=== PATIENT | female | born 1990 | race Caucasian/White ===

== ENCOUNTER 2021-10-07 15:47 | Emergency (ER) | payer BC ==
--- NOTE | 2021-10-07 16:38 | RAD REPORT ---
EXAM DESCRIPTION: CT - Head Brain Wo Cont - 10/07/2021 4:32 pm CLINICAL HISTORY: DIZZINESS Headache, dizziness COMPARISON: No comparisons TECHNIQUE: All CT scans are performed using dose optimization technique as appropriate and may inclu de automated exposure control or mA/KV adjustment according to patient size. FINDINGS: No intracranial hemorrhage, hydrocephalus or extra-axial fluid collection.No areas of brai n edema or evidence of midline shift. 2 cm mucous retention cyst versus polyp left maxillary antrum. The calvarium is intact. IMPRESSION: No acute intracranial abnormality.
--- NOTE | 2021-10-07 17:15 | RAD REPORT ---
EXAM DESCRIPTION: RAD - Chest Single View - 10/07/2021 5:08 pm CLINICAL HISTORY: chest pressure Chest pain. COMPARISON: No comparisons FINDINGS: Portable technique limits examination quality. The lungs are grossly clear. The heart is normal in size. No displaced fractures. IMPRESSION: No acute intrathoracic process suspected.
[2021-10-07 17:24] LABS: Urine Blood 1+ (Negative); Urine Glucose Negative (Negative); Urine Protein Negative (Negative); Urine Specific Gravity >=1.030 (1.005-1.030); Urine pH 5.5 (5.0-7.0)
[2021-10-07 17:29] LABS: Absolute Lymphocytes (CBC) 2.5 K/uL (0.7-4.9); Hematocrit 40.9 % (36.0-45.0); Lymphocytes % 27.1 % (15.3-44.8); MPV 8.7 fL (7.6-11.3); RBC Red Blood Cell Count 4.56 M/uL (3.86-4.86)
[2021-10-07 17:45] LABS: Protime INR 0.96
[2021-10-07 17:46] LABS: ALT/SGPT 32 U/L (12-78); AST/SGOT 10 U/L (15-37); Albumin 4.2 g/dL (3.4-5.0); Alkaline Phosphatase 77 U/L (45-117); BUN Blood Urea Nitrogen 9 mg/dL (7-18); Bicarbonate 26 mmol/L (21-32); Bilirubin Direct 0.1 mg/dL (0-0.2); Bilirubin Total 0.6 mg/dL (0.2-1.0); Glucose Level 82 mg/dL (74-106); Protein, Total 7.5 g/dL (6.4-8.2); Sodium Level 138 mmol/L (136-145)
[2021-10-07 17:49] LABS: Urine Specific Gravity/Preg >1.030 (1.005-1.030)
[2021-10-07] MEDS ORDERED: METOCLOPRAMIDE 10 MG/2mL INJ ONE (17:59)
[2021-10-07] MEDS ORDERED: MECLIZINE HCL 12.5 MG TAB ONE (18:00)
[2021-10-07] MEDS ORDERED: ONDANSETRON 4 MG/2 ML VIAL ONE (18:00)
[2021-10-07] MEDS ORDERED: NA CHLORIDE 0.9% 1,000 ML ONE (18:00)
[2021-10-07 18:02] LABS: Troponin High Sensitivity < 3.0 pg/mL (<58.9)
--- NOTE | 2021-10-07 18:15 | RAD REPORT ---
EXAM DESCRIPTION: MRI - Brain Wo Cont - 10/07/2021 6:00 pm CLINICAL HISTORY: Dizziness;Headache Headache, drowsiness COMPARISON: Head Brain Wo Cont dated 10/07/2021 TECHNIQUE: Multi-sequence, multiplanar MR imaging of the brain was performed without contrast. FINDINGS: No intracranial hemorrhage, hydrocephalus or extra-axial fluid collections. No edema or sh ift of midline structures. No findings to suspect brain mass. DWI is negative for acute CVA. Midline structures are normally formed. Mild mastoid effusions. 15 mm mucous retention cyst versus polyp posterior left maxillary antrum. IMPRESSION: Negative for acute CVA or other acute intracranial process.
[2021-10-07] MEDS ORDERED: dexAMETHasone 10 MG/ML VIAL ONE (18:45)
[2021-10-07] MEDS ORDERED: DIPHENHYDRAMINE 50 MG/ML VIAL ONE (18:45)
--- NOTE | 2021-10-07 19:41 | ER ---
Nurse's Notes [facility] Name: Eli Duarte Age: 31 yrs Sex: Female : 1990 Arrival Date: 10/07/2021 Time: 15:50 Bed 27 Private MD: Diagnosis: Headache;Dizziness and giddiness Presentation: 10/07 15:54 Chief complaint: Patient states: "i started having these symptoms at 1325. my blood jd3 pressures have been really high with systolics in the 140's and 150's and going up. I feel like i am going to pass out and feeling dizzy. when it gets this high i generally get a migraine, and I feel it coming on.". Coronavirus screen: At this time, the client does not indicate any symptoms associated with coronavirus-19. Ebola Screen: No symptoms or risks identified at this time. Initial Sepsis Screen: Does the patient meet any 2 criteria? No. Patient's initial sepsis screen is negative. Does the patient have a suspected source of infection? No. Patient's initial sepsis screen is negative. Risk Assessment: Do you want to hurt yourself or someone else? Patient reports no desire to harm self or others. Onset of symptoms was October 07, 2021. 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 - Social history:: Smoking status: Patient denies any tobacco usage or history of. Screenin:00 Abuse screen: Denies threats or abuse. Nutritional screening: No deficits noted. jb4 Tuberculosis screening: No symptoms or risk factors identified. Fall Risk None identified. Assessment: 16:00 General: Appears in no apparent distress. uncomfortable, Behavior is calm, cooperative. jb4 Pain: Complains of pain in headache Pain does not radiate. Pain currently is 4 out of 10 on a pain scale. Neuro: Level of Consciousness is awake, alert, Oriented to person, place, time, situation. Cardiovascular: Respiratory: Airway is patent Respiratory effort is even, unlabored, Respiratory pattern is regular, symmetrical. GI: No signs and/or symptoms were reported involving the gastrointestinal system. : No signs and/or symptoms were reported regarding the genitourinary system. EENT: No signs and/or symptoms were reported regarding the EENT system. Derm: Skin is intact, Skin is pink, warm \\T\\ dry. Musculoskeletal: Circulation, motion, and sensation intact. Range of motion:. 17:00 Reassessment: Patient appears in no apparent distress at this time. Patient and/or jb4 family updated on plan of care and expected duration. Pain level reassessed. Patient is alert, oriented x 3, equal unlabored respirations, skin warm/dry/pink. 18:00 Reassessment: Patient appears in no apparent distress at this time. Patient and/or jb4 family updated on plan of care and expected duration. Pain level reassessed. Patient is alert, oriented x 3, equal unlabored respirations, skin warm/dry/pink. 19:00 Reassessment: Patient appears in no apparent distress at this time. Patient and/or jb4 family updated on plan of care and expected duration. Pain level reassessed. Patient is alert, oriented x 3, equal unlabored respirations, skin warm/dry/pink. 19:59 Reassessment: Patient appears in no apparent distress at this time. Patient and/or jb4 family updated on plan of care and expected duration. Pain level reassessed. Patient is alert, oriented x 3, equal unlabored respirations, skin warm/dry/pink. Patient states feeling better. Patient states symptoms have improved. Vital Signs: 15:59 BP 171 / 115; Pulse 100; Resp 18 S; Temp 97.8(TE); Pulse Ox 100% on R/A; Weight 90.72 jd3 kg (R); Height 5 ft. 3 in. (160.02 cm) (R); Pain 4/10; 18:36 BP 150 / 104; Pulse 87; Resp 19; Pulse Ox 100% on R/A; jb4 19:00 BP 131 / 97; Pulse 76; Resp 16; Pulse Ox 100% on R/A; jb4 15:59 Body Mass Index 35.43 (90.72 kg, 160.02 cm) jd3 NIH Stroke Scale Scores: 16:15 NIHSS Score: 0 cp ED Course: 15:50 Patient arrived in ED. mr 15:56 Triage completed. jd3 16:00 Arm band placed on. jd3 16:01 Benny Thompson PA is PHCP. cp 16:01 Alex Solomon MD is Attending Physician. cp 16:18 EKG completed in triage. Results shown to MD. jd3 16:34 CT Head Brain wo Cont In Process Unspecified. EDMS 17:03 Nato Hughes, RN is Primary Nurse. jb4 17:10 XRAY Chest (1 view) In Process Unspecified. EDMS 17:18 Inserted saline lock: 20 gauge in left antecubital area, using aseptic technique. Blood mb7 collected. 17:19 Bed in low position. Call light in reach. Side rails up X 1. Door closed. Noise mb7 minimized. Warm blanket given. Pillow given. 17:25 Basic Metabolic Panel Sent. mb7 17:25 Troponin HS Sent. mb7 17:25 PT-INR Sent. mb7 17:25 Magnesium Sent. mb7 17:25 LFT's Sent. mb7 18:01 MRI - Brain Wo Cont In Process Unspecified. EDMS 19:59 No provider procedures requiring assistance completed. IV discontinued, intact, jb4 bleeding controlled, No redness/swelling at site. Pressure dressing applied. Administered Medications: 18:35 Drug: Zofran (Ondansetron) 2 mg Route: IVP; Site: left antecubital; jb4 18:36 Drug: Meclizine 25 mg Route: PO; jb4 18:37 Drug: NS 0.9% 1000 ml Route: IV; Rate: 1 bolus; Site: left antecubital; jb4 18:37 Drug: Reglan (metoCLOPramide) 10 mg Route: IVP; Site: left antecubital; jb4 18:38 Not Given (Other Intervention Used): Zofran (Ondansetron) 4 mg PO once jb4 18:48 Drug: Decadron - Dexamethasone 10 mg Route: IVP; Site: left antecubital; jb4 18:48 Drug: Benadryl (diphenhydrAMINE) 25 mg Route: IVP; Site: left antecubital; jb4 Outcome: 19:40 Discharge ordered by . cp 19:59 Discharged to home ambulatory. jb4 19:59 Condition: stable 19:59 Discharge instructions given to patient, Instructed on discharge instructions, follow up and referral plans. medication usage, Demonstrated understanding of instructions, follow-up care, medications, Prescriptions given X 3. 19:59 Patient left the ED. jb4 NIH Stroke Scale - NIH Stroke Score Date: 10/07/2021 Time: 16:15 Total Score = 0 1a. Level of Consciousness (LOC) - 0(Alert) 1b. Level of Consciousness (LOC) (Month \\T\\ Age) - 0(Both) 1c. LOC Commands (Open \\T\\ Closes Eyes/Management Services Technician) - 0(Both) 2. Best Gaze (Lateral Gaze Paresis) - 0(Normal) 3. Visual Field Loss - 0(No visual loss) 4. Facial Palsy - 0(Normal) 5a. Left Arm: Motor (10-second hold) - 0(No drift) 5b. Right Arm: Motor (10-second hold) - 0(No drift) 6a. Left Leg: Motor (5-second hold - always test supine) - 0(No drift) 6b. Right Leg: Motor (5-second hold - always test supine) - 0(No drift) 7. Limb Ataxia (finger/nose \\T\\ heel/snider - test with eyes open) - 0(Absent) 8. Sensory Loss (pinprick arms/legs/face) - 0(Normal) 9. Best Language: Aphasia (description/naming/reading) - 0(No aphasia) 10. Dysarthria (speech clarity - read or repeat words) - 0(Normal) 11. Extinction and Inattention (visual/tactile/auditory/spatial/personal) - 0(No abnormality) Initials: cp Signatures: Dispatcher [employer] Heidi Castellano Corey, PA PA cp Bryson, James, RN RN jb4 Ash Rider RN RN jd3 Breneman, Mary mb7 Corrections: (The following items were deleted from the chart) 16:03 15:54 Chief complaint: Patient states: "i started having these symptoms at [facility] 1325. my blood pressures have been really high with systolics in the 140's and 150's and going up. I feel like i am going to pass out and feeling dizzy. when it gets this high i generally get a migraine, and I feel it coming on." [facility] 18:37 18:37 Reglan (metoCLOPramide) 10 mg IVP in right antecubital jb4 jb4
--- NOTE | 2021-10-07 19:41 | EDPHYS ---
Physician Documentation [facility] Name: Eli Duarte Age: 31 yrs Sex: Female : 1990 Arrival Date: 10/07/2021 Time: 15:50 Bed 27 Private MD: ED Physician Alex Solomon HPI: 10/07 16:10 This 31 yrs old Female presents to ER via Ambulatory with complaints of High Blood cp Pressure, Dizziness, Vision Problem. 16:10 The patient has elevated blood pressure and discovered this at work. Onset: The cp symptoms/episode began/occurred today. Associated signs and symptoms: Pertinent positives: dizziness, headache, lightheadedness, nausea, weakness of legs, Pertinent negatives: chest pain, vomiting, abdominal pain. 16:10 Severity of symptoms: in the emergency department the blood pressure is systolic cp pressure of 171. 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 - Social history:: Smoking status: Patient denies any tobacco usage or history of. ROS: 16:13 Constitutional: Negative for body aches, chills, fever, poor PO intake. cp 16:13 Eyes: Negative for blurry vision, pain, redness, vision loss. cp 16:13 ENT: Negative for drainage from ear(s), ear pain, sore throat, difficulty swallowing, difficulty handling secretions. 16:13 Cardiovascular: Negative for chest pain, edema, palpitations. 16:13 Respiratory: Negative for cough, shortness of breath, wheezing. 16:13 Abdomen/GI: Positive for nausea, Negative for abdominal pain, vomiting, diarrhea, constipation. 16:13 Back: Negative for pain at rest, pain with movement. 16:13 Neuro: Positive for dizziness, headache, weakness of legs, Negative for altered mental status, gait disturbance, hearing loss, speech changes, syncope. 16:13 All other systems are negative. Exam: 16:13 ECG was reviewed by the Attending Physician. cp 16:15 Constitutional: The patient appears in no acute distress, alert, awake, cp non-diaphoretic, non-toxic, well developed, well nourished, uncomfortable. 16:15 Head/Face: Normocephalic, atraumatic. cp 16:15 Eyes: Periorbital structures: appear normal, Conjunctiva: normal, no exudate, no injection, Sclera: no appreciated abnormality, Lids and lashes: appear normal, bilaterally. 16:15 ENT: External ear(s): are unremarkable, Nose: is normal, Mouth: Lips: moist, Oral mucosa: moist, Posterior pharynx: Airway: no evidence of obstruction, patent. 16:15 Neck: ROM/movement: is normal, is supple, without pain, no range of motions limitations. 16:15 Chest/axilla: Inspection: normal. 16:15 Cardiovascular: Rate: tachycardic, Rhythm: regular, Edema: is not appreciated, JVD: is not appreciated. 16:15 Respiratory: the patient does not display signs of respiratory distress, Respirations: normal, no use of accessory muscles, no retractions, labored breathing, is not present, Breath sounds: are clear throughout, no decreased breath sounds, no stridor, no wheezing. 16:15 Abdomen/GI: Inspection: abdomen appears normal, Bowel sounds: active, all quadrants, Palpation: abdomen is soft and non-tender, in all quadrants. 16:15 Back: pain, is absent, ROM is normal. 16:15 Skin: cellulitis, is not appreciated, no rash present. 16:15 Neuro: Orientation: to person, place \T\ time. Mentation: is normal, Cerebellar function: Romberg testing is negative, Motor: moves all fours, strength is normal, Sensation: is normal. Vital Signs: 15:59 BP 171 / 115; Pulse 100; Resp 18 S; Temp 97.8(TE); Pulse Ox 100% on R/A; Weight 90.72 jd3 kg (R); Height 5 ft. 3 in. (160.02 cm) (R); Pain 4/10; 18:36 BP 150 / 104; Pulse 87; Resp 19; Pulse Ox 100% on R/A; jb4 19:00 BP 131 / 97; Pulse 76; Resp 16; Pulse Ox 100% on R/A; jb4 15:59 Body Mass Index 35.43 (90.72 kg, 160.02 cm) jd3 NIH Stroke Scale Scores: 16:15 NIHSS Score: 0 cp MDM: 16:32 Patient medically screened. cp 17:00 Differential diagnosis: hypertensive crisis, Malignant HTN, CVA, intracerebral cp hemorrhage, electrolyte abnormality, vertigo, migraine headache. 19:40 Data reviewed: vital signs, nurses notes, lab test result(s), EKG, radiologic studies, cp CT scan, MRI, plain films. 19:40 Test interpretation: by ED physician or midlevel provider: ECG, plain radiologic cp studies. Counseling: I had a detailed discussion with the patient and/or guardian regarding: the historical points, exam findings, and any diagnostic results supporting the discharge/admit diagnosis, lab results, radiology results, the need for outpatient follow up, a family practitioner, to return to the emergency department if symptoms worsen or persist or if there are any questions or concerns that arise at home. Response to treatment: the patient's symptoms have markedly improved after treatment, patient is well hydrated. VSS. Patient reports symptoms markedly improved, blood pressure markedly improved with treatment. Will discharge to home for continued monitoring. 10/07 16:33 Order name: Basic Metabolic Panel; Complete Time: 18:18 cp 10/07 18:18 Interpretation: Normal except: GFR 77. cp 10/07 16:33 Order name: CBC with Diff; Complete Time: 17:59 cp 10/07 16:33 Order name: LFT's; Complete Time: 18:18 cp 10/07 18:18 Interpretation: Normal except: AST 10. cp 10/07 16:33 Order name: Magnesium; Complete Time: 18:18 cp 10/07 16:33 Order name: PT-INR; Complete Time: 17:59 cp 10/07 16:33 Order name: Troponin HS; Complete Time: 18:18 cp 10/07 16:07 Order name: CT Head Brain wo Cont; Complete Time: 17:15 cp 10/07 16:33 Order name: XRAY Chest (1 view); Complete Time: 17:59 cp 10/07 17:22 Order name: MRI - Brain Wo Cont; Complete Time: 18:18 cp 10/07 18:19 Interpretation: Report reviewed. 10/07 17:25 Order name: Urine Dipstick-Ancillary; Complete Time: 17:59 EDMS 10/07 17:59 Interpretation: Normal except: UBLD 1+; UESTR Trace. 10/07 17:33 Order name: Urine --Ancillary (enter results); Complete Time: 17:59 bd 10/07 18:00 Interpretation: Normal except: USPGR PREG >1.030. 10/07 16:07 Order name: EKG; Complete Time: 16:08 cp 10/07 16:07 Order name: EKG - Nurse/Tech; Complete Time: 16:55 cp 10/07 16:33 Order name: Cardiac monitoring; Complete Time: 17:25 cp 10/07 16:33 Order name: IV Saline Lock; Complete Time: 17:25 cp 10/07 16:33 Order name: Labs collected and sent; Complete Time: 17:25 10/07 16:33 Order name: O2 Per Protocol; Complete Time: 17:25 cp 10/07 16:33 Order name: O2 Sat Monitoring; Complete Time: 17:25 cp 10/07 16:33 Order name: Urine Dipstick-Ancillary (obtain specimen); Complete Time: 17:25 10/07 16:33 Order name: Urine Test (obtain specimen); Complete Time: 17:25 cp EC:13 Rate is 85 beats/min. Rhythm is regular. MN interval is normal. QRS interval is normal. cp QT interval is normal. T waves are Inverted in leads III, aVR. Interpreted by me. Reviewed by me. Administered Medications: 18:35 Drug: Zofran (Ondansetron) 2 mg Route: IVP; Site: left antecubital; jb4 18:36 Drug: Meclizine 25 mg Route: PO; jb4 18:37 Drug: NS 0.9% 1000 ml Route: IV; Rate: 1 bolus; Site: left antecubital; jb4 18:37 Drug: Reglan (metoCLOPramide) 10 mg Route: IVP; Site: left antecubital; jb4 18:38 Not Given (Other Intervention Used): Zofran (Ondansetron) 4 mg PO once jb4 18:48 Drug: Decadron - Dexamethasone 10 mg Route: IVP; Site: left antecubital; jb4 18:48 Drug: Benadryl (diphenhydrAMINE) 25 mg Route: IVP; Site: left antecubital; jb4 Disposition Summary: 10/07/21 19:40 Discharge Ordered Location: Home cp Problem: new cp Symptoms: have improved cp Condition: Stable cp Diagnosis - Headache cp - Dizziness and giddiness cp Followup: cp - With: Private Physician - When: 1 - 2 days - Reason: Recheck today's complaints Discharge Instructions: - Discharge Summary Sheet cp - Dizziness cp - Migraine Headache cp Forms: - Medication Reconciliation Form cp - Thank You Letter cp - Antibiotic Education cp - Prescription Opioid Use cp Prescriptions: - Meclizine 25 mg Oral Tablet - take 1 tablet by ORAL route every 8 hours As needed; 30 tablet; Refills: 0, cp Product Selection Permitted - Reglan 10 mg Oral Tablet - take 1 tablet by ORAL route every 6 hours take 30 minutes before meals and at cp bedtime; 20 tablet; Refills: 0, Product Selection Permitted - Ibuprofen 800 mg Oral Tablet - take 1 tablet by ORAL route every 8 hours As needed take with food; 30 tablet; cp Refills: 0, Product Selection Permitted NIH Stroke Scale - NIH Stroke Score Date: 10/07/2021 Time: 16:15 Total Score = 0 1a. Level of Consciousness (LOC) - 0(Alert) 1b. Level of Consciousness (LOC) (Month \T\ Age) - 0(Both) 1c. LOC Commands (Open \T\ Closes Eyes/Shipwright Supervisor) - 0(Both) 2. Best Gaze (Lateral Gaze Paresis) - 0(Normal) 3. Visual Field Loss - 0(No visual loss) 4. Facial Palsy - 0(Normal) 5a. Left Arm: Motor (10-second hold) - 0(No drift) 5b. Right Arm: Motor (10-second hold) - 0(No drift) 6a. Left Leg: Motor (5-second hold - always test supine) - 0(No drift) 6b. Right Leg: Motor (5-second hold - always test supine) - 0(No drift) 7. Limb Ataxia (finger/nose \T\ heel/snider - test with eyes open) - 0(Absent) 8. Sensory Loss (pinprick arms/legs/face) - 0(Normal) 9. Best Language: Aphasia (description/naming/reading) - 0(No aphasia) 10. Dysarthria (speech clarity - read or repeat words) - 0(Normal) 11. Extinction and Inattention (visual/tactile/auditory/spatial/personal) - 0(No abnormality) Initials: cp Signatures: Dispatcher [employer] EDMS Benny Thompson PA PA cp Bryson, James, RN RN jb4 Ash Rider RN RN jd3 Corrections: (The following items were deleted from the chart) 10/08 15:40 10/07 16:10 The patient has elevated blood pressure and discovered this work, [facility] 10/08 15:40 10/07 16:10 Associated signs and symptoms: Pertinent positives: dizziness, cp headache, nausea, weakness, cp
[2021-10-07 23:06] VITALS: TEMP 97.8; O2SAT 100
[2021-10-07 23:09] VITALS: BP 131/97
--- NOTE | 2021-10-09 11:04 | EKG ---
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
== END 2021-10-07 19:59 | disposition home or self-care (01) ==
LOC: ER 15:47
DX: R51.9 Headache, unspecified (principal); I10 Essential (primary) hypertension; R11.0 Nausea; Z88.3 Allergy status to other anti-infective agents; Z88.5 Allergy status to narcotic agent; Z91.048 Other nonmedicinal substance allergy status
CPT/HCPCS: 93005; 85025; 80048; 36415; 83735; 81025; 85610; 80076; 81003; 84484; 70450; 71045; 70551; J2765; J1200; J8597; J1100; J7030; J2405; 96374; 96375; 99284